=== PATIENT | male | born 1930 | race Caucasian/White ===

== ENCOUNTER → 2016-10-12 | Outpatient (CLI) | payer MEDICARE ==
[~2016-10-12] MED LIST: GADOBUTROL 7.5 MMOL/7.5 ML VIAL IV ONE
--- NOTE | 2016-10-12 17:17 | RAD ---
PROCEDURE MRI of the lumbar spine without and with contrast 10/12/2016 HISTORY Low back pain with bilateral leg radiculopathy. History of previous lumbar spine surgery. TECHNIQUE Unenhanced T1 weighted and T2 weighted sagittal and axial and inversion recovery sagittal images of the lumbar spine were obtained. After the intravenous administration 7 cc of Gadavist, enhanced T1 weighted sagittal and axial images of the lumbar spine were obtained. FINDINGS Very mild S-shaped curvature of the thoracolumbar spine is seen. Degenerative signal changes are seen involving all of the discs of the lumbar spine. Degenerative signal changes are seen within the marrow surrounding these discs. Loss of height of the L4-5 disc is noted. The conus medullaris is normal in morphology, position, and signal characteristics. At the L1-2 and L2-3 disc spaces there are mild generalized disc bulges. Degenerative changes are seen involving the facet joints bilaterally. These findings do not result in significant central spinal canal or neural foraminal stenosis. At the L3-4 disc space there is a mild generalized disc bulge. Degenerative changes are seen involving the facet joints bilaterally. There is mild ligamentum flavum hypertrophy bilaterally. These findings when combined do not result in significant central spinal canal or neural foraminal stenosis. At the L4-5 disc space there is a mild generalized disc bulge. The patient is status post laminectomy. Degenerative changes are seen involving the facet joints bilaterally. These findings do not result in significant central spinal canal stenosis. No neural foraminal stenosis is seen. At the L5-S1 disc space the patient is status post laminectomy. There is a mild to moderate generalized disc bulge. Degenerative changes are seen involving the facet joints bilaterally. These findings when combined do not result in significant central spinal canal stenosis. Mild to moderate left greater than right neural foraminal stenosis is seen. IMPRESSION 1. Status post laminectomy at L4-5 and L5-S1. 2. The changes of degenerative disc disease are seen involving the lumbar spine. These findings do not result in significant central spinal canal stenosis at any level. Mild to moderate left greater than right neural foraminal stenosis is seen at L5-S1. Electronically signed by: Donnell Stein MD (Oct 12, 2016 17:15:56)
== END | disposition home or self-care (01) ==
LOC: MRI 12:12
PROVIDERS: ATTEND General Practice
DX: M51.36 Other intervertebral disc degeneration, lumbar region (principal); M48.07 Spinal stenosis, lumbosacral region; R29.890 Loss of height
CPT/HCPCS: 72158; A9585

== ENCOUNTER → 2016-10-28 | Outpatient (CLI) | payer MEDICARE ==
[~2016-10-28] MED LIST changes: +BUPIVACAINE MPF 0.25% 10 ML VIAL. ONE; +CARB1TAB48 PO; +GABA-586 PO; -GADOBUTROL 7.5 MMOL/7.5 ML VIAL IV ONE; +HYDR-2762 PO; +IOHEXOL 180 MG/ML 10 ML VIAL. ONE; +TRAM50TA PO; +methylPREDNISolone ACETATE 40 MG/ML VIAL. ONE; +methylPREDNISolone ACETATE 80 MG/ML VIAL. ONE
--- NOTE | 2016-10-29 02:08 | PAIN ---
DATE OF SERVICE: 10/28/2016 INITIAL CONSULTATION FOR PAIN CLINIC CHIEF COMPLAINT: Low back and bilateral lower extremity pain. HISTORY OF PRESENT ILLNESS: This is an 86-year-old male who presents with history of pain in the low back radiating to the posterior gluteus, posterior thighs for many years. The patient reports he had back surgery in 1980. He has had some pain in the back since that time, much worse over the past 6 months or so. The patient reports pain in the back radiating to the posterior gluteus, posterior thighs, even in his lower leg on the left side sometimes, but mostly in the back itself is his main complaint. The patient reports ____ always up during the day. He can handle the pain, although it is there. He is taking tramadol 4 times a day to try and decrease it, which does work fairly well by about 75% improvement by his rating, but reports that when he is lying down or trying to sleep at night, the pain is becoming unbearable. The patient ____ across the low back, left side slightly worse than the right, but present bilaterally, again worse at night, awakening from sleep at least 3 times at night, does not affect his bowel and bladder control, but does affect his ability to walk to some extent. He is having some weakness in the left leg compared to the right with ambulation. The patient reports no recent injuries or accidents or other inciting events to increase the pain that he is aware of, but it is aching, radiating, again primarily at night, shooting pain, constant, aching and sharp stabbing in the low back as well. The patient has done physical therapy in the past, also had epidural injections, trigger point injections and exercises, which he is continuing to do with stretching and strengthening exercises. Again, all these have been only mildly decreasing the pain. The patient takes tramadol, Vicodin. He has tried both of these with good results with the tramadol, not currently taking any of the Vicodin, but does have it available, also taking carbidopa-levodopa, which helps him sleep. The patient is taking gabapentin as well, but twice a day. The patient describes his disability rating from 0 to 10, 10 being the worst as a 5 with family and home responsibilities and recreation, 0 with self-care and life support activities, but significant pain with sleeping. The patient reports no loss of motor function, but again his left lower extremity fatigues much more easily than the right when he is ambulating, even more than about 10-15 minutes. He must sit and rest and lean forward to decrease some of the pain in his low back and his leg. PAST MEDICAL HISTORY: Significant for hearing loss; cigarette smoking, quit 20 years ago; prostate cancer in 1997; arthritis; restless legs syndrome; headaches; aortic aneurysm. PAST SURGICAL HISTORY: Include lumbar laminectomy L4-L5 and L5-S1 in 1980 and again 1988 and previous prostatectomy. CURRENT MEDICATIONS: Include gabapentin 300 mg twice a day, carbidopa twice daily, hydrocodone p.r.n., and tramadol 50 mg p.r.n. ALLERGIES: THE PATIENT IS ALLERGIC TO ASPIRIN. FAMILY HISTORY: No major medical problems or conditions that he is aware of. SOCIAL HISTORY: The patient quit smoking many years ago. Does not drink alcohol. He is , lives with his spouse in [place], [place] and is currently retired. REVIEW OF SYSTEMS: The patient's review of systems is positive for those items mentioned in history of present illness. All systems reviewed and otherwise negative. It is complete, full and well documented on the patient's chart. PHYSICAL EXAMINATION: VITAL SIGNS: The patient's blood pressure 150/93, pulse 80, respirations 16, temperature is 98.2 degrees Fahrenheit, height is 5 feet 8 inches, weight 162 pounds. GENERAL: The patient is awake, alert, oriented, appropriate, very pleasant demeanor. HEENT: Shows normocephalic, atraumatic. The patient wears eyeglasses. Extraocular movements are intact and symmetrical. Oral cavity shows moist and pink. Dentition is intact. NECK: Shows anterior throat supple without palpable lymphadenopathy noted. Swallow reflex is symmetrical. Neck shows full rotational motion of cervical spine, both laterally greater than 45 degrees as well as full extension, full forward flexion without difficulty or tenderness. CHEST: Shows normal on inspection. Breath sounds are clear to auscultation bilaterally. HEART: Shows S1 and S2 clear. No murmurs, rubs or gallops are auscultated. ABDOMEN: Shows normal on inspection, is soft, nontender, nondistended with palpation. No palpable organomegaly is noted. No rebound or guarding demonstrated. BACK: The patient's back shows spine grossly midline, slight increase in thoracic kyphosis and mild flattening of lumbar lordotic curvature. Well healed surgical scar is noted in the lumbar distribution. On inspection with palpation, the lumbar paraspinous muscle shows some moderate tenderness to palpation mainly in the low lumbar distribution bilaterally, but it is very firm and taut with normal muscle girth. No atrophy or hypertrophy. No asymmetry. The patient missing spinous processes from previous laminectomy in the low lumbar spine. No tenderness over the sacrum or the sacroiliac regions with palpation. The patient does show good rotation and motion of the lumbar spine with some mild tenderness reported with greater than 10 degrees right and left lateral rotation. With extension shows significant more severe pain with greater than about 10 degrees posterior extension. Forward flexion is performed to 45 degrees without difficulty and actually with relief of pain and no pain reported on this maneuver. The patient's lower extremities showed deep tendon reflexes at 1+ in the patellar and tendo calcaneus tendons are equal. Motor exam is strong with dorsiflexion, extension, quadriceps and hamstring flexion bilaterally. Peripheral pulses are 1+ posterior tibial and dorsalis pedis pulses. No peripheral edema is noted. No clubbing, no cyanosis. Lower extremities are warm and dry to touch, equal in color and appearance. The patient's straight leg raise noted to be mildly positive on the left with straight leg raise about 45 degrees, but it is decreased with knee flexion. Right side is negative. Gaenslen's and Carlos's maneuvers are negative for reproduction of pain bilaterally. The patient is able to stand, stand on his toes, loses balance when putting all his weight on his left lower extremity, but is able to do so. The patient is walking with a slight antalgic gait, appears to favor the left lower extremity slightly, not using any assistive devices such as canes or walkers to ambulate with him on his visit today. IMPRESSION: 1. This is an 86-year-old male with long history since 1980, low back pain status post lumbar laminectomy surgery x 2, 1980 and 1988 with residual low back pain and radiating pain into the lower extremities. 2. MRI scan of lumbar spine showing status post laminectomy L4-L5 and L5-S1 with changes of degenerative disk disease along the lumbar spine without significant central spinal canal stenosis, mild to moderate left greater than right neural foraminal stenosis at L5-S1. 3. Arthritis. 4. History of prostate cancer. 5. Aortic aneurysm history. PLAN: Options were discussed with the patient including conservative medical management, physical therapy, interventional techniques and he would like to pursue interventional techniques. So, we discussed lumbar facet joint injection at the L4-L5 and L5-S1 levels bilaterally using description as well as anatomical models to describe the procedure. Risks were then discussed including, but not limited to bleeding, infection, possibility of epidural hematoma and subsequent neurologic compromise, dural punctures, headaches, spinal cord and/or nerve damage, side effects of steroid medication, exacerbation of symptoms and exposure to fluoroscopy as well as poor results regarding pain control. The patient understands and wished to proceed. The patient will return to the clinic in approximately 2 weeks for followup, was counseled on return appointment, activity level and side effects to be aware of. DIAGNOSIS: Lumbar spondylosis with lumbar degenerative disk disease and post-lumbar laminectomy syndrome. PROCEDURE: Bilateral facet joint injections at L4-L5 and L5-S1 levels with fluoroscopic guidance under sterile prep and draping using local anesthetic. MEDICATIONS INJECTED: Total of 120 Depo-Medrol plus total of 4 mL 0.25% bupivacaine and total of 2 mL of Isovue for contrast. CONDITION AT DISCHARGE: Stable. The patient tolerated the procedure well, had no complications. ROGELIO ZHOU MD DR: MARIN/maria JOB#: [id number] / [id number] RIMMA Rincon DO
== END | disposition home or self-care (01) ==
LOC: PNCL 10:40
PROVIDERS: ATTEND Anesthesiology
DX: M51.16 Intervertebral disc disorders with radiculopathy, lumbar region (principal); M47.26 Other spondylosis with radiculopathy, lumbar region; M96.1 Postlaminectomy syndrome, not elsewhere classified; H91.90 Unspecified hearing loss, unspecified ear; Z87.891 Personal history of nicotine dependence; Z85.46 Personal history of malignant neoplasm of prostate; M19.90 Unspecified osteoarthritis, unspecified site; Z98.890 Other specified postprocedural states; Z79.899 Other long term (current) drug therapy
CPT/HCPCS: 64493; 64494; J1030; J1040; J3490

== ENCOUNTER → 2016-11-15 | Outpatient (CLI) | payer MEDICARE ==
--- NOTE | 2016-11-16 03:59 | PAIN ---
DATE OF SERVICE: 11/15/2016 DIAGNOSES: 1. Lumbar spondylosis, lumbar degenerative disk disease, and post-lumbar laminectomy syndrome. HISTORY OF PRESENT ILLNESS: The patient is an 86-year-old male who returns for followup status post bilateral L4-L5 and L5-S1 facet joint injections. The patient reports about 50% improvement and the pain in his legs is significantly improved, especially on the left side but still has some dull aching pain across the low back with motion and rotation and extension and flexion. The patient reports a stabbing pain in his hips posteriorly, improved significantly though. His pain is a 5 on a scale of 10 currently, it can be as high as an 8 in the morning when he wakes up, but once he gets moving, it is down to a 5. The patient reports no new motor or sensory deficits, no new bowel or bladder incontinence or other complaints. He is very pleased with his progress, still some pain again in the low back that is aching and dull, but much better in the legs without any radicular pain at this time. PHYSICAL EXAMINATION: VITAL SIGNS: The patient's blood pressure is 168/90, pulse 62, respirations 18, temperature 97.4 degrees Fahrenheit, height is 5 feet 8 inches, weight is 161 pounds. GENERAL: The patient is awake, alert, oriented, appropriate, very pleasant demeanor. HEENT: Head shows normocephalic, atraumatic. The patient is wearing eye glasses. Extraocular movements are intact and symmetrical. Oral cavity, mucous membranes are moist and pink. Dentition is intact. NECK: Shows anterior throat supple without palpable lymphadenopathy noted. Swallow reflex is symmetrical. Neck shows full rotational motion of the cervical spine without difficulty. CHEST: Normal on inspection. Breath sounds are clear to auscultation bilaterally. HEART: Shows S1 and S2 clear. ABDOMEN: Normal on inspection soft, nontender, nondistended. No palpable organomegaly is noted. No rebound or guarding demonstrated. BACK: Shows spine grossly in midline. Lumbar paraspinous musculature shows some moderate tenderness to palpation. Well-healed surgical scars again noted. The patient does show some minor tenderness with extension, but not with forward flexion, again across the low back bilaterally, right and left. Right and left lateral rotations performed greater than 10 degrees right and left with only minor pain reported on exam today. The patient's lower extremities show deep tendon reflexes at 1+ in the patellar and tendo calcaneus tendons are equal. Motor exam is strong with dorsiflexion, extension, quadriceps, and hamstring flexion rated at 5/5 and equal as well. Peripheral pulses are 1+ posterior tibial and dorsalis pedis pulses. No peripheral edema is noted. Options were discussed with the patient and the patient's old chart was reviewed as his current medication regimen updated. Current review of systems updated today as well. We will proceed with repeat L4-L5 and L5-S1 bilateral facet joint injections with fluoroscopic guidance. Risks were again discussed including, but not limited to bleeding, infection, possibility of epidural hematoma, subsequent neurologic compromise, dural punctures, headaches, spinal cord and/or nerve damage, side effects of steroid medications, exposure to fluoroscopy and poor results regarding pain control. The patient understands and wishes to proceed. The patient will return to the clinic in approximately 2 weeks for followup, was counseled on return appointment, activity level, and side effects to be aware of. We discussed possibility of radiofrequency ablation in the future if the patient has significant decrease in pain and we will discuss this on followup as well. DIAGNOSES: Lumbar spondylosis with lumbar degenerative disk disease and post-lumbar laminectomy syndrome. PROCEDURE: Bilateral L4-L5 and L5-S1 facet joint injections with C-arm fluoroscopic guidance and local anesthetic under sterile prep and drape. MEDICATIONS INJECTED: A total of 120 mg Depo-Medrol plus a total of 4 mL of 0.25% bupivacaine and a total of 2 mL of Isovue for contrast. CONDITION AT DISCHARGE: Stable. The patient tolerated procedure well, had no complications. ROGELIO ZHOU MD DR: MARIN/maria JOB#: [id number] / [id number]
== END | disposition home or self-care (01) ==
LOC: PNCL 10:02
PROVIDERS: ATTEND Anesthesiology
DX: M51.36 Other intervertebral disc degeneration, lumbar region (principal); M47.816 Spondylosis without myelopathy or radiculopathy, lumbar region; M96.1 Postlaminectomy syndrome, not elsewhere classified
CPT/HCPCS: 64493; 64494; J1030; J1040; J3490

== ENCOUNTER → 2016-11-30 | Outpatient (CLI) | payer MEDICARE ==
[~2016-11-30] MED LIST changes: -BUPIVACAINE MPF 0.25% 10 ML VIAL. ONE
--- NOTE | 2016-12-01 03:58 | PAIN ---
DATE OF SERVICE: 11/30/2016 DIAGNOSES: Lumbar spondylosis with lumbar degenerative disk disease and post-lumbar laminectomy syndrome. HISTORY OF PRESENT ILLNESS: The patient is an 86-year-old male who returns for followup status post bilateral lumbar facet joint injections x 2, first injection with some good relief of pain in his legs, but only 1 or 2 days of about 50% improvement. The patient reports he has minimal improvement in his low back, left side worse than right and we reviewed his MRI scan with him showing some moderate left greater than right neural foraminal stenosis at L5-S1 with post-laminectomy changes at L4-L5 and L5-S1. We discussed this on his last visit as well with he and his spouse and will try a caudal epidural steroid injection today. The patient reports still pain is 10/10, worse at night, sitting is better, walking is better, but lying down is bad, still waking up several times through the night with pain across the low back, left side worse than right and into the posterior gluteus bilaterally. PHYSICAL EXAMINATION: VITAL SIGNS: The patient's blood pressure 144/97, pulse 85, respirations 18, temperature 98.1 degrees Fahrenheit, height is 5 feet 8 inches, weight is 156 pounds. GENERAL: The patient is awake, alert, oriented, appropriate, very pleasant demeanor. HEENT: Head shows normocephalic, atraumatic. Extraocular movements are intact and symmetrical. Oral cavity, mucous membranes are moist and pink. Dentition is intact. NECK: Shows anterior throat supple without palpable lymphadenopathy noted. Neck shows full rotational motion of the cervical spine without difficulty. CHEST: Shows normal on inspection. Breath sounds clear to auscultation bilaterally. HEART: Shows S1 and S2. LUNGS: Clear. ABDOMEN: Soft, nontender, nondistended. No palpable organomegaly is noted. No rebound or guarding demonstrated. BACK: Shows spine grossly midline, flattening noticed of the lumbar lordotic curvature with well-healed surgical scarring, lumbar paraspinous musculature is moderately tender, but only in the low lumbar distribution. The patient shows good rotational motion with some minor tenderness with extension, but not with forward flexion. No tenderness over the sacrum or sacroiliac regions. EXTREMITIES: Lower extremities showed deep tendon reflexes 1+ in the patellar and tendo calcaneus tendons are equal. Motor exam remains strong with dorsiflexion and extension rated at 5/5 as well as quadriceps and hamstring flexion. Options were discussed with the patient. We will proceed with a caudal approach epidural steroid injection today with fluoroscopic guidance. Risks were again discussed including, but not limited to bleeding, infection, possibility of epidural hematoma, subsequent neurologic compromise, dural puncture, headaches, spinal cord and/or nerve damage, side effects of steroid medication and poor results regarding pain control. The patient understands and wishes to proceed. The patient will return to clinic in approximately 2 weeks for followup. He was counseled to return ____ side effects to be aware of. DIAGNOSIS: Lumbar spondylosis with degenerative disk disease and post-lumbar laminectomy syndrome. PROCEDURE: Caudal approach epidural steroid injection with C-arm fluoroscopic guidance under sterile prep and drape using local anesthetic. MEDICATIONS INJECTED: 120 mg Depo-Medrol plus 10 mL of preservative-free normal saline and 2 mL of Isovue contrast. CONDITION AT DISCHARGE: Stable. The patient tolerated procedure well, had no complications. ROGELIO ZHOU MD DR: MARIN/maria JOB#: [id number] / [id number]
== END | disposition home or self-care (01) ==
LOC: PNCL 10:10
PROVIDERS: ATTEND Anesthesiology
DX: M51.36 Other intervertebral disc degeneration, lumbar region (principal); M47.896 Other spondylosis, lumbar region; M96.1 Postlaminectomy syndrome, not elsewhere classified
CPT/HCPCS: 62323; J1030; J1040

== ENCOUNTER → 2019-03-14 | Outpatient (CLI) | payer MEDICARE ==
[~2019-03-14] MED LIST changes: -GABA-586 PO; +GABA300C18 PO; +GADOTERATE 7.5 MMOL/15ML VIAL. IVP ONE; -HYDR-2762 PO; +HYDR-2765 PO; -IOHEXOL 180 MG/ML 10 ML VIAL. ONE; -methylPREDNISolone ACETATE 40 MG/ML VIAL. ONE; -methylPREDNISolone ACETATE 80 MG/ML VIAL. ONE
--- NOTE | 2019-03-14 16:53 | KCIC ---
MRI abdomen with and without contrast: Clinical indications: Gross hematuria. Cystic lesion of the right kidney seen on previous CT study dated December 12, 2018.. COMPARISON: Abdomen CT study dated December 12, 2018. Technique: T1 and T2 weighted MRI sequences of the abdomen was performed in the axial and coronal planes. In phase and out of phase MRI sequences were performed as well. After IV infusion of 14 cc of Dotarem, postcontrast enhanced multiphasic T1-weighted sequences were performed. Findings: Small cyst of the left lobe liver is seen. The spleen is homogeneous in appearance. The pancreas is homogeneous in appearance. A prominent gallstone is seen within the gallbladder measuring 2.7 cm. There is a smaller gallstone within the gallbladder measuring 0.9 cm. No abnormal dilatation of the intrahepatic or extrahepatic biliary tree is seen. No adrenal mass is evident. There is a prominent nonenhancing cyst of the lower pole of the right kidney without internal nodularity or septation which measures 3.6 cm in size corresponding to the CT finding. Smaller nonenhancing cysts of both kidneys are seen. No hydronephrosis is evident. There is aneurysmal dilatation of the lower thoracic and upper abdominal portion of the aorta which was seen on the previous CT study. Greatest caliber of the lower thoracic portion is 5.2 cm and greatest caliber is 4.4 cm within the proximal abdominal aorta at the level of the diaphragmatic hiatus and 3.6 cm at the level of the celiac artery. This is unchanged from the CT study. No enlarged abdominal lymphadenopathy is seen. No ascites is seen. IMPRESSION: Benign nonenhancing 3.6 cm cyst of the lower pole of the right kidney. Additional smaller benign cysts of both kidneys are seen. Nonenhancing cyst of the left lobe of the liver. Cholelithiasis. Aneurysmal dilatation of the lower thoracic and upper abdominal portion of the aorta which is unchanged from the previous CT study. Unremarkable noncontrast MRI study of the abdomen. Electronically signed by: Miles Danielson MD (03/14/2019 4:50 PM) [id number]
== END | disposition home or self-care (01) ==
LOC: KCIC MRI 09:27
PROVIDERS: ATTEND General Practice
DX: K80.20 Calculus of gallbladder without cholecystitis without obstruction (principal); N28.1 Cyst of kidney, acquired; K76.89 Other specified diseases of liver; D49.4 Neoplasm of unspecified behavior of bladder; I71.4 Abdominal aortic aneurysm, without rupture; R31.0 Gross hematuria; K59.00 Constipation, unspecified; Z85.46 Personal history of malignant neoplasm of prostate
CPT/HCPCS: 74183; A9575

== ENCOUNTER → 2019-03-16 | Outpatient (CLI) | payer MEDICARE ==
--- NOTE | 2019-03-16 17:04 | KCIC ---
EXAM: MRI pelvis with and without contrast. HISTORY: Gross hematuria. 2 bladder masses on cystoscopy. TECHNIQUE: MRI of the pelvis was performed before and after the intravenous administration of 14 mL Dotarem. COMPARISON: 12/12/2018. FINDINGS: The bladder is decompressed, limiting evaluation. There are 2 endophytic polypoid masses on the left. The more superior lesion is adjacent to the ureterovesical junction and measures approximately 1.2 x 1.2 cm. The more inferior is inferior to the ureterovesical junction, and measures 8 x 5 mm. No transserosal extension is identified by this technique. Elsewhere,, bladder wall thickening and trabeculation are consistent with chronic outlet obstruction or inflammation. The prostate is surgically absent. No recurrent mass is appreciated in the prostatectomy bed. There are no pathologically enlarged pelvic lymph nodes. Sigmoid diverticulosis is moderate. IMPRESSION: 1. Two endophytic polypoid masses arise from the left wall of the bladder, adjacent to, and inferior to, the orifice of the ureterovesical junction. No transmural extension is identified. No pelvic lymphadenopathy. 2. Status post prostatectomy. No evidence of local recurrence. Electronically signed by: Elisha Arvizu MD (03/16/2019 5:01 PM) [facility]
== END | disposition home or self-care (01) ==
LOC: KCIC MRI 10:03
PROVIDERS: ATTEND General Practice
DX: K57.30 Diverticulosis of large intestine without perforation or abscess without bleeding (principal); D49.4 Neoplasm of unspecified behavior of bladder; I71.4 Abdominal aortic aneurysm, without rupture; R31.0 Gross hematuria; K59.00 Constipation, unspecified; R10.9 Unspecified abdominal pain; Z85.46 Personal history of malignant neoplasm of prostate
CPT/HCPCS: 72197; A9575